=== PATIENT | male | born 1980 ===

== ENCOUNTER 2019-09-07 10:22 | Emergency (ER) | payer OTHER ==
--- NOTE | 2019-09-07 11:11 | UC ---
Lower Extremity/Ankle HPI - HPI Summary HPI Summary: 38-year-old male comes in with a chief complaint of left ankle pain. Pain started 3 days ago after playing soccer with his son. Pain is worse in the lateral aspect of the left ankle. There is some pain on the dorsal aspect of the ankle also. Pain is worse with weightbearing and palpation. Tried some ibuprofen which did help decrease the pain. - History of Current Complaint Chief Complaint: UCLowerExtremity Stated Complaint: FOOT COMPLAINT Time Seen by Provider: 09/07/19 10:38 Pain Intensity: 6 - Allergies/Home Medications Allergies/Adverse Reactions: Allergies Allergy/AdvReac Type Severity Reaction Status Date / Time erythromycin base Allergy Anaphylatic Verified 09/07/19 10:31 Shock Home Medications: Home Medications NK [No Home Medications Reported] 09/07/19 [History Confirmed 09/07/19] PMH/Surg Hx/FS Hx/Imm Hx Previously Healthy: Yes - Surgical History Surgical History: Yes Surgery Procedure, Year, and Place: spinal fusion. removal of hardware from spinal fusion - Family History Known Family History: Positive: Non-Contributory - Social History Alcohol Use: Occasionally Substance Use Type: None Smoking Status (MU): Current Every Day Smoker Type: Cigarettes Amount Used/How Often: 1/2 ppd Review of Systems All Other Systems Reviewed And Are Negative: Yes Constitutional: Positive: Negative Skin: Positive: Negative Eyes: Positive: Negative ENT: Positive: Negative Respiratory: Positive: Negative Cardiovascular: Positive: Negative Motor: Positive: Negative Neurovascular: Positive: Negative Musculoskeletal: Positive: Other: - see hpi Neurological/Mental Status: Positive: Negative Psychological: Positive: Negative Is Patient Immunocompromised?: No Physical Exam Triage Information Reviewed: Yes Appearance: Well-Appearing, No Pain Distress, Well-Nourished Vital Signs: Initial Vital Signs Temp 97.6 F 09/07/19 10:37 Pulse 82 09/07/19 10:37 Resp 16 09/07/19 10:37 BP 149/94 09/07/19 10:37 Pulse Ox 97 09/07/19 10:37 Vital Signs Reviewed: Yes Eye Exam: Normal Eyes: Positive: Conjunctiva Clear Neck: Positive: Supple Respiratory: Positive: No respiratory distress Musculoskeletal: Positive: Other: - Left ankle is tender to palpation on the lateral malleolus. There is some soft tissue swelling. Achilles tendon is intact and mildly tender to palpation. Medial malleolus is nontender. Anterior ankle is nontender to palpation. Toes and ankle do have full range of motion with normal capillary refill normal sensation. Neurological: Positive: Alert Psychological: Positive: Age Appropriate Behavior Skin Exam: Normal Lower Extremity Course/Dx - Course Course Of Treatment: Production Team Manager: Fritz Harrison ([id number]) [employer] Hand Finisher: SIDNEY (RACHELLEANCE) Report Date: 09/07/2019 11:19:00 Report Status: Final Start of Report Content ===== Patient Name: lucia grace Medical Record#: [id number] Ordering Physician: Jhoan Ornelas MD Acct.#: [id number] : 1980 Age: 38 Sex: M Location : [facility] Exam Date: 09/07/19 1043 ADM Status: REG ER Order Information: ANKLE LEFT 3+VWS Accession Number: [id number] CPT: 60640 INDICATION: Lateral left ankle pain since soccer injury 3 days earlier COMPARISON: None. TECHNIQUE: 3 views of the left ankle were obtained. FINDINGS: The well corticated bones exhibit normal alignment. Joint spaces appear maintained. No fracture is seen. IMPRESSION: Normal ankle radiograph. If the patient's symptoms persist, follow-up imaging is recommended. 09/07/19 1115 Dictated By: Fritz Harrison MD Dictated Date/Time: 09/07/19 111 Transcribed Date/Time: 09/07/19 111 Copy to: CC:No Primary Care Phys,NOPCP ; Jhoan Ornelas MD Imaging - [facility] - [facility] [address] [place] [address] ph ([phone]) ph ([phone]) ([phone]) End of Report Content === I discussed the x-rays with the patient's. No fracture seen. Rudy wrap and gel ankle splint placed by nursing patient neurovascular intact after placement. Patient declined crutches. I recommended weightbearing as tolerated, rest, apply ice and take ibuprofen. Follow-up with sports medicine or orthopedics if not completely improved. - Differential Dx/Diagnosis Provider Diagnosis: Sprain of left ankle Discharge ED - Sign-Out/Discharge Documenting (check all that apply): Patient Departure All imaging exams completed and their final reports reviewed: Yes - Discharge Plan Condition: Stable Disposition: HOME Patient Education Materials: Ankle Sprain (ED) Referrals: Haydee An MD [Medical Doctor] - [facility] [Provider Group] Additional Instructions: FOLLOW UP WITH SPORTS MEDICINE OR ORTHOPEDICS IF NOT COMPLETELY IMPROVED. GET REEVALUATED IF NOT IMPROVED OR WORSE OR ANY QUESTIONS OR CONCERNS. - Billing Disposition and Condition Condition: STABLE Disposition: Home
== END 2019-09-07 11:36 | disposition home or self-care (01) ==
LOC: UCEAST 10:22
DX: S93.402A Sprain of unspecified ligament of left ankle, initial encounter (principal); X58.XXXA Exposure to other specified factors, initial encounter; Y93.66 Activity, soccer; Y92.9 Unspecified place or not applicable; Z88.1 Allergy status to other antibiotic agents; F17.210 Nicotine dependence, cigarettes, uncomplicated
CPT/HCPCS: 99202; G0463